=== PATIENT | male | born 1955 | race Caucasian/White ===

== ENCOUNTER 2016-10-30 10:02 | Outpatient (CLI) | payer OTHER ==
--- NOTE | 2016-10-30 13:01 | DIAGNOSTIC IMAGING REPORT ---
PROCEDURE: MR UPPER EXTREMITY JT W/WO-RT INDICATION: MASS OF RT ELBOW TECHNIQUE: T1 and STIR axial, coronal and sagittal sequences. 15 ml of Gadolinium IV and T1 fat sat axial, coronal and sagittal sequences were obtained. COMPARISON: None. FINDINGS: There is a subcutaneous 5.9 cm cranial-caudal x 4 cm AP x of 1.1 cm transverse sharply marginated mass demonstrating increased T1 and low signal on the STIR sequence consistent with a lipoma located along the lateral aspect of the elbow joint.. There is a central 2 x 1.4 x 0.6 cm area demonstrating intermediate T1 signal and low signal on STIR sequence which could represent a scar, proteinaceous or blood products. There is no enhancement of the mass. Normal bicipital tendon. Mild degenerative changes of the elbow joint. Normal medial and lateral collateral ligaments. There is no occult fracture or effusion. IMPRESSION: 1. Lateral elbow subcutaneous lesion consistent with a lipoma with a central area which representing scarring, proteinaceous or blood products. Recommend ultrasound for further evaluation and follow-up MRI in 6 months.
== END 2016-10-30 23:00 ==
LOC: MRI SRH 10:02
DX: R22.31 Localized swelling, mass and lump, right upper limb (principal); D17.39 Benign lipomatous neoplasm of skin and subcutaneous tissue of other sites